=== PATIENT | female | born 1960 | race Caucasian/White ===

== ENCOUNTER → 2018-09-08 | Outpatient (CLI) | payer OTHER ==
[~2018-09-08] VITALS: Ht 167.6 cm; Wt 75.0 kg
[~2018-09-08] MED LIST: ABILIFY10 MG PO; HALOPERIDOL 2 MG2 M1 PO; HYDROCHLOROTH12.5 M1 PO; MOBIC7.5 MG PO; TRAZODONE HCL100 MG PO; WELLBUTRIN XL300 MG PO
[2018-09-08 07:39] VITALS: BP 157/73
[2018-09-08 07:44] LABS: HEMATOCRIT 41.4 % (37.0-47.0); HEMOGLOBIN 14.3 gm/dL (12.0-15.0); MCH 29.6 pg (26.0-34.0); MCHC 34.5 g/dL (28.0-37.0); MCV 85.7 fL (80.0-100.0); MPV 9.8 fl. (7.2-11.1); RBC 4.83 mil/uL (4.20-5.00); RDW-CV 13.5 % (10.5-14.5); WBC 8.7 thou/uL (4.0-11.0)
[2018-09-08 08:01] LABS: CREATININE 0.8 mg/dL (0.6-1.3); POTASSIUM 4.1 mmol/L (3.5-5.1)
[2018-09-08 08:05] LABS: APTT 29.1 Seconds (25.0-31.3)
[2018-09-08 10:41] VITALS: BP 146/75
--- NOTE | 2018-09-08 11:45 | EKG ---
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1960 Requested By: Donte William Order Number: [id number] Pepito MD: Kailash Reyna Measurements Intervals [place] Rate: 66 P: 54 SC: 174 QRS: 1 QRSD: 134 T: 26 QT: 426 QTc: 447 Interpretive Statements Sinus rhythm Right bundle branch block Baseline wander in lead(s) II,III,aVR,aVF,V1,V3,V4,V5,V6 No previous ECG available for comparison Electronically Signed On 09-08-2018 11:45:36 CDT by Kailash Reyna [email or web address] <ELECTRONICALLY SIGNED> By: Kailash Reyna MD, [facility] 09/08/18 1145 [id number] Kailash Reyna MD, [facility] /EPI
--- NOTE | 2018-09-08 11:48 | EKG ---
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1960 Requested By: Donte William Order Number: [id number] Pepito MD: Kailash Reyna Measurements Intervals [place] Rate: 77 P: 52 HI: 179 QRS: 162 QRSD: 122 T: 39 QT: 401 QTc: 454 Interpretive Statements Atrial-sensed ventricular-paced rhythm No further analysis attempted due to paced rhythm No previous ECG available for comparison Electronically Signed On 09-08-2018 11:47:56 CDT by Kailash Reyna [email or web address] <ELECTRONICALLY SIGNED> By: Kailash Reyna MD, [facility] 09/08/18 1147 D: 04/1137 113 Kailash Reyna MD, [facility]ACC /EPI
--- NOTE | 2018-10-02 13:50 | CARD ---
[address] [address] CARDIAC CATH REPORT Name: CONNOR MACARIO Room: [facility]#: [id number] Admission: 09/08/18 Attend Phys: Donte William MD, F Discharge: Date of : 64 Report #: [id number] THIS REPORT FOR: //name// ADDENDUM APPROVED REPORT Study performed: 09/08/2018 07:53:01 Patient Status: Out-Patient Room #: Event Personnel: Donte William Video Manager, Jam Lujan CARTON REPAIRER Monitor, , Ayaan Salgado (Jerrod) Danae Corona Brittany RN Carpenter Assistant Installer Exam: Insertion of Dual Chamber Permanent Pacemaker Indications: 2nd Degree Mobitz II The patient is a 57 year-old female with a history of Dyspnea. Conscious Sedation Start time: 8:37 End Time: 9:48 Fentanyl 25.0 mcg Versed 6.0 mg Implanted Devices: dual chamber mri compatible biotronic pacemaker and leads Procedure The patient underwent informed consent. We discussed the details of the procedure including the risks, which include, but not limited to bleeding, infection, vascular damage, cardiac perforation, and pneumothorax. She understood these risks and was willing to proceed. As such, she was brought to the EP/Cardiac Catheterization laboratory in a fasting and sedated state and prepped and draped in a sterile fashion, received IV antibiotics prior to initiation of the procedure and a venogram was performed showing patency of the left axillary vein. The patient underwent conscious sedation, with no related complications. The patient was brought to the EP/Cardiac Catheterization laboratory and the left chest and shoulder were prepped and draped in a sterile manner. During this case, Fluoroscopy and low osmolar contrast were used for imaging. The left subclavian region was infiltrated with 2% Lidocaine subcutaneous anesthesia. A transverse incision was made in the left upper chest cavity. The subcutaneous pocket was [place] [address] CARDIAC CATH REPORT Name: CONNOR MACARIO Room: [facility]#: [id number] Admission: 09/08/18 Attend Phys: Donte William MD, F Discharge: Date of : 64 Report #: [id number] venous access was achieved and an introducer sheath was inserted into the left Subclavian vein. Sheaths were positions using the modified Seldinger technique Through the introducer sheaths the atrial and ventricular lead wires were positioned in the right atrial appendage and right ventricular apex respectively. Utilizing fluoroscopic guidance, the atrial and ventricular lead wires were advanced over the wires and positioned in the right atria and right ventricle respectively. Capturing and sensing thresholds were verified. Electrode Parameters P Wave: 5.8 mv R Wave: 7.0 mv Atrial Threshold: 1.0 v @ 0.4 ms Ventricular Threshold: 0.6 mv @ 0.4 ms Atrial Resistance: 487 ohm Ventricular Resistance: 858 ohm Dual Chamber The atrial and ventricular leads were then secured using 0 silk sutures. The subcutaneous pocket was irrigated with ancef antibiotic solution.The atrial and ventricular leads were attached to the appropriate receptacles on the pulse generator and set screws firmly tightened to insure adequate contact and stability. The lead and pulse generator were placed into the subcutaneous pocket. Sharp and sponge counts were confirmed to be correct. At this time the pocket was closed subcutaneously with a 0 Vicryl and the skin was closed with a 4.0 Vicryl. The operative site was dressed in sterile fashion with skin affix and the patient was transferred to the floor in stable condition. Complications The patient tolerated the procedure well and there were no complications associated with the procedure. Findings Specimens Removed: No Estimated Blood Loss: 10 cc Conclusion successful placement of a dual chamber pacemaker and leads <ELECTRONICALLY SIGNED> By: Donte William MD, [facility] 10/02/18 1350 1350 [id number] William MD, FAC /INF
== END | disposition home or self-care (01) ==
LOC: M.CL 06:26
PROVIDERS: Internal Medicine Cardiovascular Disease
DX: I44.1 Atrioventricular block, second degree (principal); J30.9 Allergic rhinitis, unspecified; R00.1 Bradycardia, unspecified; K21.9 Gastro-esophageal reflux disease without esophagitis; Z85.3 Personal history of malignant neoplasm of breast; I10 Essential (primary) hypertension; E05.90 Thyrotoxicosis, unspecified without thyrotoxic crisis or storm; Z98.890 Other specified postprocedural states; G47.00 Insomnia, unspecified; F17.210 Nicotine dependence, cigarettes, uncomplicated; R06.00 Dyspnea, unspecified; Z79.01 Long term (current) use of anticoagulants